=== PATIENT | male | born 1960 | race Hispanic/Latino ===

== ENCOUNTER → 2017-05-09 | Outpatient (CLI) | payer OTHER ==
--- NOTE | 2017-05-09 11:13 | REP ---
Clinical: Fibrosis. Technique: PA and lateral. Findings: The mediastinum and cardiac silhouette are normal. The lung fernandes are clear and without acute consolidation, effusion, or pneumothorax. The skeletal structures are intact and normal. Impression: 1. No acute cardiopulmonary process. Signed by Emerson Christie MD 05/09/2017 10:23 A
== END ==
LOC: M RAD 09:25
PROVIDERS: ATTEND Surgery
DX: J84.10 Pulmonary fibrosis, unspecified (principal)